=== PATIENT | male | born 1960 | race Caucasian/White ===

== ENCOUNTER → 2024-09-21 09:12 | Outpatient (REF) | payer MEDICARE, BC, SELFPAY | LOC: HWRAD 09:12 | PROVIDERS: ATTENDING PHYSICIAN Urology; FAMILY PHYSICIAN Family Medicine | DX: N21.0 Calculus in bladder (principal); N40.1 Benign prostatic hyperplasia with lower urinary tract symptoms; N13.8 Other obstructive and reflux uropathy | CPT/HCPCS: 76770 ==